=== PATIENT | female | born 2000 | race Caucasian/White ===

== ENCOUNTER 2022-08-15 15:59 | Emergency (ER) | payer SELFPAY ==
[2022-08-15 16:01] VITALS: BP 128/81; PULSE 97; RESP 14; TEMP 36.1; O2SAT 98; BMI 38.5
--- NOTE | 2022-08-15 17:58 | ED.RN ---
CALLED FOR PT AT 1758, APPEARED PT HAD LEFT.
== END 2022-08-15 17:58 | disposition left against medical advice (07) ==
LOC: ED 18:54
DX: N64.4 Mastodynia (principal); Z53.21 Procedure and treatment not carried out due to patient leaving prior to being seen by health care provider

== ENCOUNTER → 2022-08-30 | Outpatient (CLI) | payer MEDICAID, SELFPAY ==
[2022-09-01 21:07] LABS: Chlamydia By Nucleic Acid AMP Negative (Negative)
[2022-09-01 22:21] LABS: Gonococcus By Nucleic Acid AMP Negative (Negative)
[2022-09-06 20:38] LABS: HPV Reflexed? NOT INDICATED
== END | disposition home or self-care (01) ==
PROVIDERS: Visit Provider Nurse Practitioner Women's Health
DX: N89.8 Other specified noninflammatory disorders of vagina (principal); Z11.3 Encounter for screening for infections with a predominantly sexual mode of transmission; Z12.4 Encounter for screening for malignant neoplasm of cervix
CPT/HCPCS: 87070; 87205; 87491; 87591; 88175; G0145

== ENCOUNTER 2023-07-04 03:01 | Emergency (ER) | payer MEDICAID, SELFPAY ==
[2023-07-04 03:01] VITALS: BP 147/95; PULSE 84; RESP 17; TEMP 36.1; O2SAT 98; BMI 37.4
[2023-07-04 03:16] VITALS: O2SAT 100
--- NOTE | 2023-07-04 03:16 | EKG12_ITS ---
Test Reason : CP Blood Pressure : / mmHG Vent. Rate : 095 BPM Atrial Rate : 095 BPM P-R Int : 134 ms QRS Dur : 074 ms QT Int : 326 ms P-R-T Axes : 023 029 017 degrees QTc Int : 409 ms Normal sinus rhythm Normal ECG Confirmed by DYLAN BAY, MANUEL ([id number]), film and video editor DUYEN CRAWLEY ([id number]) on 07/05/2023 10:32:18 AM Referred By: Confirmed By:MANUEL RICHARDSON MD
--- NOTE | 2023-07-04 03:16 | ED.RN ---
Dr Bah states patient does not require a sitter.
--- NOTE | 2023-07-04 03:21 | EDS_ITS ---
HPI History of Present Illness Chief Complaint: Chest Pain Informant: patient Narrative Narrative: Patient presents with chest heaviness and feeling like she needs to take a deep breath. She has had issues with this off and on for the last almost year. She states it normally occurs with panic attacks. She has been feeling it more today. There is evidently a unpleasant discussion with somebody that initiated it. Patient has no family history of heart disease or PE. Patient has no recent travel surgery immobilization or personal history of PE. She has control listed on her med list. But she states she was prescribed this in August. She took it for less than 2 weeks and stopped it. She has not been on any control. She has not been sick or having fevers or chills. [facility] Medical History Anxiety Bipolar 1 disorder Depression Insomnia Home Medications norgestimate 0.25 mg-ethinyl estradiol 35 mcg tablet (Sprintec (28)) 1 tab PO QDAY #28 tabs 08/30/22 [Rx Last Taken Unknown] nitrofurantoin monohydrate/macrocrystals 100 mg capsule (Macrobid) 100 mg PO Q12H 7 days #14 caps 07/04/23 [Rx Last Taken Unknown] Allergy/AdvReac Type Severity Reaction Status Date / Time No Known Allergies Allergy Verified 07/04/23 03:05 Family History Grandmother Cancer Uterine Aunt Cancer cervical Aunt Breast cancer Social History housing: house number of children: 0 current occupational status: employed current occupation: [employer] Smoking Status: Current every day smoker tobacco type: cigarettes alcohol intake: current alcohol intake frequency: holidays/special occasions only substance use type: does not use seatbelt use: always do you feel safe at home: Yes additional social history: Boyfriend-Nilesh GENA GENA AVERY Narrative And A complete review of systems was performed and is negative except as documented in the history of present illness. Some specific details below. Constitutional: No recent fevers or chills. No malaise. EYE: No discharge, visual complaints, or pain. ENT: No difficulty swallowing. No swelling. No pain. No reflux symptoms. CV: See history of present illness. Respiratory: See history of present illness. GI: No abdominal pain. No nausea vomiting diarrhea. No blood in stool. : No frequency dysuria or hematuria. Musculoskeletal: No recent trauma. No pains. No swelling. Skin: No rash. Nondiaphoretic. Neuro: No weakness or numbness. Endocrine: No polyuria or polydipsia. EXAM Physical Exam Narrative Exam Narrative: CONSTITUTIONAL: Patient is nontoxic in appearance. The patient looks comfortable. Work of breathing looks normal. HEENT: No notable trauma. Mucous membranes moist. No sinus tenderness. No indication of pain with swallowing. EYES: No conjunctival injection. No proptosis. NECK:No JVD. No stridor. CARDIOVASCULAR: Regular rate. Regular rhythm. No notable murmur. No JVD. Peripheral pulses are normal x 4. RESPIRATORY: No respiratory distress. Breathing is unlabored. No wheezes. No rhonchi. No rales. No pain with a deep breath. Mild chest wall tenderness. But no subcutaneous air or crepitance. GASTROINTESTINAL: Not distended. Bowel sounds are normal. No tenderness. No guarding. No rebound. No palpable mass. No bruit is heard. GENITOURINARY: No tenderness over the bladder. No CVA tenderness. MUSCULOSKELETAL: Atraumatic. No peripheral edema. No cord. No tenderness along the deep venous system. No asymmetry. No distended veins. NEUROLOGICAL: Patient is alert and appropriate. No focal deficit noted. SKIN: No noted rashes. No diaphoresis. PSYCHIATRIC: Patient is calm. Mood is appropriate. Const Vital Signs: 07/04/23 03:01 07/04/23 03:16 07/04/23 04:01 Temperature 96.9 F L Temperature Source Temporal Pulse Rate 84 66 Respiratory Rate 17 15 Blood Pressure 147/95 H 94/76 Blood Pressure Mean 112 82 Pulse Ox 98 100 100 Oxygen Delivery Method Room Air Room Air Room Air 07/04/23 04:55 Temperature Temperature Source Pulse Rate 71 Respiratory Rate 19 H Blood Pressure 115/80 Blood Pressure Mean 91 Pulse Ox 98 Oxygen Delivery Method Room Air MDM MDM MDM Narrative Medical decision making narrative: Patient's CBC shows minimal nonspecific elevation in the white count with normal hemoglobin and platelets. Patient's electrolytes show no marked abnormalities. Patient's troponin is negative despite symptoms all day today and multiple episodes recently. I do not think this needs a repeat troponin. My independent interpretation of her single view chest x-ray shows no acute process. I see no cardiomegaly infiltrate or pneumothorax. Of note, we are having problems with our radiology system tonight. All night I have not been able to see films. Finally on this image I can see films. We are having delays getting them read. Even when the films are read there is significant delays on getting the results faxed to us. So I am not going to be able to get the final reading on this film. But I am not seeing anything on it that would make me hold the patient here. Patient is PERC negative. She has had longstanding symptoms. Workup is overall negative. I think she is safe for discharge and follow-up. Patient also mention at check-in that she had thoughts of hurting herself. She has had this in the past. She is not having it now. She does feel that her anxiety and depression is getting worse. She actually has an appointment 2:00 today for an assessment and evaluation. I do not think we need to accelerate this and have her seen by crisis. Patient also now asked if she had a UTI. I explained that she had had no complaints related to that. She now states that she is concerned she does have a UTI so we will add that on at this time. While waiting for urinalysis, we were able to get reading of the chest x-ray which showed no radiographic evidence of acute cardiopulmonary disease. Her urine is not a clean-catch. But there are a large number of white cells red cells. Loudly and there is leukocytes esterase. Nitrites are negative. She does have 2+ bacteria. Patient does have some discomfort with urination. We will treat this pending culture. Lab Data Attestation: I reviewed the patient's lab results. Labs: Laboratory Results - last 24 hr 07/04/23 07/04/23 03:10 05:02 WBC 11.1 H RBC 4.41 Hgb 13.0 Hct 40.2 MCV 91.2 MCH 29.5 MCHC 32.3 RDW Std Deviation 42.4 RDW Coeff of Jakob 12.7 Plt Count 324 MPV 10.4 Immature Gran % (Auto) 0.300 Neut % (Auto) 54.5 Lymph % (Auto) 34.0 [place] % (Auto) 8.7 Eos % (Auto) 2.1 Baso % (Auto) 0.4 Absolute Neuts (auto) 6.1 Absolute Lymphs (auto) 3.77 Nucleated RBC % 0 Sodium 140 Potassium 3.6 Chloride 108 H Carbon Dioxide 27.0 Anion Gap 5 BUN 14 Creatinine 0.94 Estim Creat Clear Calc 69.64 Est GFR (MDRD) Af Amer 94 Est GFR (MDRD) Non-Af 77 BUN/Creatinine Ratio 14.9 Glucose 95 Calcium 9.5 Troponin I High Sens 4 Urine Color Yellow Urine Clarity Sl. Cloudy Urine pH 6.5 Ur Specific [place] 1.025 Urine Protein 30 H Urine Glucose (UA) Normal Urine Ketones 5 H Urine Occult Blood 250 H Urine Nitrite Negative Urine Bilirubin Negative Urine Urobilinogen 4 H Ur Leukocyte Esterase 500 H Urine RBC 50-100 SEEN Urine WBC 50-100 SEEN Ur Squamous Epith Cells 10-25 SEEN Urine Bacteria 2+ Urine Mucus 0 SEEN EKG Initial EKG: Comments: My independent interpretation of the patient's EKG shows normal sinus rhythm with a rate of 95. No ectopy. No acute ST elevation or depression. SC interval, QRS duration and QTc are normal. This EKG was done while she was having symptoms. Discharge Plan Triage Chief Complaint: Chest Pain ED Provider: Boyd Bah Dx/Rx/DC Orders Clinical Impression: History of anxiety, History of depression, Chest pain, UTI (urinary tract infection) Instructions: Urinary Tract Infections in Women, ED Anxiety Reaction, ED Chest Pain, Uncertain Cause Prescriptions: New nitrofurantoin monohyd/m-cryst [Macrobid] 100 mg capsule 100 mg PO Q12H 7 Days Qty: 14 0RF Rx Instructions: must administer with a meal/food No Action norgestimate-ethinyl estradiol [Sprintec (28)] 0.25-35 mg-mcg tablet 1 tab PO QDAY Qty: 28 3RF Primary Care Provider: Care Physician,No Primary Referrals: Gifty Cotton DO [Med Staff - Serials Librarian] - 3-5 Days if not improving Care Physician,No Primary [Primary Care Provider] - Activity Restrictions/Additional Instructions: Follow-up with your counseling appointment today at 2 PM. Disposition Disposition: Home, Self Care
[2023-07-04 03:29] LABS: Absolute Lymphocyte Count 3.77 X10^3/uL (0.83-4.51); Absolute Neutrophil Count 6.1 X10^3/uL (2.0-7.7); Basophil# 0.04 X10^3/uL; Basophil% 0.4 % (0-1); Eosinophil# 0.23 X10^3/uL; Eosinophils% 2.1 % (0-5); Hematocrit 40.2 % (37-47); Lymphocyte # 3.77 X10^3/ul (0.83-4.51); Mean Corp Hgb Conc 32.3 g/dL (32-36); Mean Corpuscular Hgb 29.5 pg (27.0-32.0); Mean Corpuscular Volume 91.2 fL (81-99); Mean Platelet Vol. 10.4 fl (6.2-12.0); Monocyte# 0.97 X10^3/uL; Monocyte% 8.7 % (0-10); NRBC Flagged by Analyzer 0 % (0-5); Neutrophil # 6.06 X10^3/uL (2.7-7.7); Neutrophil % 54.5 % (47-70); Platelet Count 324 K/mm3 (150-450); RBC Distribution Width CV 12.7 % (11.6-14.6); RBC Distribution Width SD 42.4 fl (35.1-43.9); Red Blood Count 4.41 M/mm3 (4.2-5.4); White Blood Count 11.1 K/mm3 (4.4-11.0)
--- NOTE | 2023-07-04 03:30 | RAD_ITS ---
EXAM: XR CHEST, 1 VIEW CLINICAL INDICATION: chest pain TECHNIQUE: Frontal view of the chest. COMPARISON: No relevant prior studies available. FINDINGS: LUNGS AND PLEURAL SPACES: Unremarkable. No consolidation or edema. No pneumothorax. No effusion. HEART: Unremarkable. Cardiac silhouette not enlarged. MEDIASTINUM: Central airways and mediastinal contour are unremarkable. BONES/JOINTS: Unremarkable. No acute fracture. SOFT TISSUES: Unremarkable. RAD/Chest 1 View (Portable) IMPRESSION: No radiographic evidence of acute cardiopulmonary disease. Electronically Signed: Mika Anderson MD at 4:29 EST ,
[2023-07-04 03:58] LABS: Anion Gap 5 (5-15); BUN 14 mg/dL (7-18); BUN/Creat Ratio 14.9 RATIO (10-20); Calcium,Total 9.5 mg/dL (8.5-10.1); Chloride 108 mmol/L (98-107); Creatinine, Serum 0.94 mg/dL (0.55-1.02); EST Glomerular Filtration Rate 77 mL/min (>60); Est Glom Filt Rate - Afr Amer 94 mL/min (>60); Estimated Creatinine Clearance 69.64 ml/min; Glucose 95 mg/dL (74-106); Potassium 3.6 mmol/L (3.5-5.1); Sodium Level 140 mmol/L (136-145); Troponin-I HS 4 pg/mL (3.0-54.0)
[2023-07-04 04:01] VITALS: BP 94/76; PULSE 66; RESP 15; O2SAT 100
[2023-07-04 04:55] VITALS: BP 115/80; PULSE 71; RESP 19; O2SAT 98
[2023-07-04 05:19] LABS: Mucous, Urine 0 SEEN /hpf (<or=2+)
[2023-07-04 05:23] LABS: Color, Urine Yellow (Yellow); Glucose, Dipstick Normal (Normal); Ketone-Dipstick 5 mg/dl (Negative); Leukocyte Esterase-Dipstick 500 /ul (Negative); Nitrite-Dipstick Negative (Negative); Occult Blood-Urine 250 /ul (Negative); Protein-Dipstick 30 mg/dl (Negative); Specific Gravity, Urine 1.025 (1.002-1.030); Urine Bilirubin Dipstick Negative (Negative); Urine Clarity Sl. Cloudy (Clear); Urine Urobilinogen 4 mg/dl (Normal); Urine pH 6.5 (5.0 - 8.0)
[2023-07-04 06:01] LABS: Bacteria 2+ /hpf (None Seen); Red Blood Cells-Urine 50-100 SEEN /hpf (0-5); Squamous Epithelial Cells - UA 10-25 SEEN /hpf (5-10); White Blood Cells 50-100 SEEN /hpf (0-5)
--- NOTE | 2023-07-04 06:33 | ED.RN ---
MACROBID 100 MG PO GIVEN AT THIS TIME PER NOW ORDER FROM DR HAHN
[2023-07-04 06:34] VITALS: BP 115/80; PULSE 71; RESP 15; O2SAT 98
== END 2023-07-04 06:38 | disposition home or self-care (01) ==
PROVIDERS: Emergency Provider Emergency Medicine; Visit Provider Emergency Medicine
DX: R07.9 Chest pain, unspecified (principal); F41.9 Anxiety disorder, unspecified; F17.210 Nicotine dependence, cigarettes, uncomplicated; F32.A Depression, unspecified; N39.0 Urinary tract infection, site not specified
CPT/HCPCS: 71045; 80048; 81001; 84484; 85025; 87086; 93005; 99283; A4216

== ENCOUNTER 2023-07-08 18:27 | Emergency (ER) | payer MEDICAID, SELFPAY ==
[2023-07-08 18:28] VITALS: BP 106/82; PULSE 75; RESP 16; TEMP 36.2; O2SAT 100; BMI 36.6
[2023-07-08 18:31] VITALS: PULSE 98; RESP 16; O2SAT 98
--- NOTE | 2023-07-08 19:27 | EDS_ITS ---
HPI History of Present Illness Chief Complaint: Chest Pain Informant: patient Onset/Context/Timing Onset: Today and Hours (Approximately 30 minutes prior to arrival) Activity at onset: sudden and rest Timing: Intermittent and Lasts (Approximately 30 minutes) Quality: Positive for Pressure and Sharp Location: Left Chest and - (Left arm) Worsened By: Nothing Relieved By: Nothing Associated Symptoms: Positive for Nausea, Dyspnea, Lightheadedness and Palpitations; Negative for Vomiting, Diaphoresis, Cough, Fever or Acid Reflux Narrative Narrative: Patient presents with chest pain that began approximately 30 minutes prior to arrival. Patient states it is over the left side of her chest. Patient states it radiated into her left arm and went down into her left hand. Patient is to some tingling in the fingers of her left hand. Patient also admits to some swelling of her left palm. Patient states this lasted approximately 30 minutes and then resolved. Patient describes it as sharp and pressure. Patient states nothing makes it better nothing makes it worse. Patient admits to some nausea with the pain. Patient also admits to some lightheadedness. Patient states she was having some palpitations earlier in the day. Patient also admits to some shortness of breath. Patient denies any cough or fever. CVD Risk Factors: Positive for Smoking; Negative for Hypertension, Diabetes, Hypercholesterolemia or Family History 1' </=55 PE Risk Factors: Negative for Recent Travel/Surgery, Recent Immobilization, Prior DVT or PE, Cancer or OCP + Smoking + >/=35 PFSH PFSH Medical History Anxiety Bipolar 1 disorder Depression Insomnia Home Medications norgestimate 0.25 mg-ethinyl estradiol 35 mcg tablet (Sprintec (28)) 1 tab PO QDAY #28 tabs 08/30/22 [Rx Last Taken Unknown] nitrofurantoin monohydrate/macrocrystals 100 mg capsule (Macrobid) 100 mg PO Q12H 7 days #14 caps 07/04/23 [Rx Last Taken Unknown] Allergy/AdvReac Type Severity Reaction Status Date / Time No Known Allergies Allergy Verified 07/08/23 18:27 Family History Grandmother Cancer Uterine Aunt Cancer cervical Aunt Breast cancer Surgical History no surgical history no surgical history Social History housing: house number of children: 0 current occupational status: employed current occupation: [employer] Smoking Status: Current every day smoker tobacco type: cigarettes alcohol intake: current alcohol intake frequency: holidays/special occasions only substance use type: does not use seatbelt use: always do you feel safe at home: Yes additional social history: Apolinar AVERY ROS ED Constitutional Constitutional ED: Denies chills or fever(s) Eyes Eyes: Denies blurry vision or change in vision ENT ENT ED: Denies rhinorrhea or sore throat Cardiovascular Cardiovascular: Reports chest pain; Denies palpitations Respiratory/Chest Respiratory/Chest: Reports dyspnea; Denies cough Gastrointestinal Gastrointestinal: Reports nausea; Denies vomiting Genitourinary Genitourinary ED: Denies dysuria or hematuria Musculoskeletal Musculoskeletal: Reports back pain and neck pain Integumentary Denies abscess or rash Neurologic Neurologic: Denies headache(s) or weakness Allergic/Immunologic Allergic/Immunologic ED: Denies mouth swelling or urticaria EXAM Physical Exam Const Vital Signs: 07/08/23 18:28 07/08/23 18:27 07/08/23 18:31 Temperature 97.1 F L Temperature Source Temporal Pulse Rate 75 98 Respiratory Rate 16 16 Respiratory Effort Normal Blood Pressure 106/82 H Blood Pressure Mean 90 Pulse Ox 100 98 Oxygen Delivery Method Room Air Room Air 07/08/23 20:00 Temperature Temperature Source Pulse Rate Respiratory Rate Respiratory Effort Blood Pressure Blood Pressure Mean Pulse Ox Oxygen Delivery Method Room Air Positive well nourished, well developed and obese General Appearance ED: well developed and NAD Nutritional Appearance: obese HEENT Reports moist mucous membranes Neck supple and no JVD Chest Wall palpation of chest normal Resp normal respiratory effort and clear to auscultation bilaterally Cardio regular rate and regular rhythm GI soft to palpation, non-tender and non-distended Extremity normal to inspection General Extremety ED: Negative for edema or tenderness General Extremity: Negative for edema Neuro oriented x3, CN's II-XII intact bilaterally and no sensory deficits noted Sensorium / Orientation: awake and alert Motor Exam: strength 5/5 throughout Psych mental status grossly normal Heart Score History: Slightly/Non-Suspicious ECG: Normal Risk Factors: 1 or 2 Risk Factors Troponin: </= Normal Limit Score: 1 MDM MDM MDM Narrative Medical decision making narrative: Differential diagnosis includes cardiac dysrhythmia, cardiac ischemia, pneumonia, pneumothorax, musculoskeletal pain, and anxiety. Patient has a Wells score of 0. I do not feel is from a pulmonary embolism. EKG will be obtained to assess for cardiac dysrhythmia and cardiac ischemia. CBC will be obtained to assess for leukocytosis and anemia. Basic metabolic profile will be obtained to assess for electrolyte abnormality and renal function. High-sensitivity troponin will be obtained to assess for cardiac ischemia. Chest x-ray will be obtained to assess for pneumonia and pneumothorax. Lab Data Attestation: I reviewed the patient's lab results. Lab results narrative: CBC was reviewed and was within normal limits. Basic metabolic profile was reviewed and was essentially within normal limits. High-sensitivity troponin was reviewed and was normal at 5. 2-hour repeat high-sensitivity troponin was reviewed and was normal at 4. Labs: Laboratory Results - last 24 hr 07/08/23 07/08/23 19:57 21:50 WBC 7.5 RBC 4.09 L Hgb 12.2 Hct 38.1 MCV 93.2 MCH 29.8 MCHC 32.0 RDW Std Deviation 43.5 RDW Coeff of Jakob 12.7 Plt Count 270 MPV 10.5 Immature Gran % (Auto) 0.400 Neut % (Auto) 55.1 Lymph % (Auto) 32.9 [place] % (Auto) 8.4 Eos % (Auto) 2.9 Baso % (Auto) 0.3 Absolute Neuts (auto) 4.2 Absolute Lymphs (auto) 2.48 Nucleated RBC % 0 Sodium 140 Potassium 3.9 Chloride 108 H Carbon Dioxide 30.0 Anion Gap 2 L BUN 12 Creatinine 0.75 Estim Creat Clear Calc 87.28 Est GFR (MDRD) Af Amer 122 Est GFR (MDRD) Non-Af 101 BUN/Creatinine Ratio 16.1 Glucose 104 Calcium 9.7 Troponin I High Sens 5 4 Radiography Chest X-Ray - ED: 2 View, Read by ED Physician, Read by Radiologist and No Acute Disease Diagnostic Testing: Clinical Impression(s) from Imaging Studies Chest X-Ray 07/08/23 19:33 IMPRESSION: No radiographic evidence of acute cardiopulmonary disease. Electronically Signed: Ollie Foster MD at 20:18 EST , PA and lateral chest x-ray was obtained. There are 2 views. On my independent interpretation, lung horn are clear. There is normal cardiac silhouette. Bony thorax is normal. There is no acute process noted. Radiologist also interpreted the x-ray and agrees. EKG Initial EKG: Attestation: I personally reviewed and interpreted this EKG as follows: Interpretation: Sinus Rhythm (72) and No Acute Injury Pattern Comments: EKG was obtained. On my independent interpretation, it showed a normal sinus rhythm with a rate of 72. AR interval, QRS interval, and QTc intervals were all normal. [place] was normal. There are no acute ST or T wave ch anges. Prior EKG tracings: available for review Prior: Unchanged (07/04/2023) Treatment and Re-Evaluation :: Patient was given aspirin. Patient is feeling better on reevaluation. Patient was advised of her findings. Patient has a HEART score of 1. Patient was advised that this is low risk for acute cardiac event. Patient was instructed to follow-up with her primary care physician in 5 to 7 days. Patient understood and was agreeable with the plan. All questions were answered. Discharge Plan Triage Chief Complaint: Chest Pain ED Provider: Vadim Goff Dx/Rx/DC Orders Clinical Impression: Chest pain, Anxiety, Bipolar 1 disorder Instructions: ED Chest Pain, Uncertain Cause Prescriptions: No Action norgestimate-ethinyl estradiol [Sprintec (28)] 0.25-35 mg-mcg tablet 1 tab PO QDAY Qty: 28 3RF nitrofurantoin monohyd/m-cryst [Macrobid] 100 mg capsule 100 mg PO Q12H 7 Days Qty: 14 0RF Rx Instructions: must administer with a meal/food Primary Care Provider: Care Physician,No Primary Referrals: León Sunshine MD [Non-Staff] - 5-7 Days Care Physician,No Primary [Primary Care Provider] - Disposition Disposition: Home, Self Care
--- NOTE | 2023-07-08 19:33 | EKG12_ITS ---
Test Reason : CP Blood Pressure : / mmHG Vent. Rate : 072 BPM Atrial Rate : 087 BPM P-R Int : 126 ms QRS Dur : 082 ms QT Int : 348 ms P-R-T Axes : 022 032 023 degrees QTc Int : 381 ms Normal sinus rhythm with sinus arrhythmia Normal ECG Confirmed by DYLAN BAY, MANUEL ([id number]), production editor KATIE GARCIA ([id number]) on 07/17/2023 9:19:16 AM Referred By: Confirmed By:MANUEL RICHARDSON MD
--- NOTE | 2023-07-08 19:33 | RAD_ITS ---
EXAM: XR CHEST, 2 VIEWS CLINICAL INDICATION: chest pain TECHNIQUE: Frontal and lateral views of the chest. COMPARISON: 07.04.23 FINDINGS: LUNGS AND PLEURAL SPACES: Unremarkable. No consolidation or edema. No pneumothorax. No effusion. HEART: Unremarkable. Cardiac silhouette not enlarged. MEDIASTINUM: Central airways and mediastinal contour are unremarkable. BONES/JOINTS: Unremarkable. No acute fracture. SOFT TISSUES: Unremarkable. RAD/Chest PA and Lateral IMPRESSION: No radiographic evidence of acute cardiopulmonary disease. Electronically Signed: Ollie Foster MD at 20:18 EST ,
[2023-07-08] MEDS: Aspirin 81 MG TAB.CHEW 324 MG PO (19:55)
[2023-07-08 20:02] LABS: Absolute Lymphocyte Count 2.48 X10^3/uL (0.83-4.51); Absolute Neutrophil Count 4.2 X10^3/uL (2.0-7.7); Basophil# 0.02 X10^3/uL; Basophil% 0.3 % (0-1); Eosinophil# 0.22 X10^3/uL; Eosinophils% 2.9 % (0-5); Hematocrit 38.1 % (37-47); Hemoglobin 12.2 g/dL (12.0-15.0); Lymphocyte # 2.48 X10^3/ul (0.83-4.51); Lymphocyte % 32.9 % (19-41); Mean Corpuscular Hgb 29.8 pg (27.0-32.0); Mean Corpuscular Volume 93.2 fL (81-99); Mean Platelet Vol. 10.5 fl (6.2-12.0); Monocyte# 0.63 X10^3/uL; Monocyte% 8.4 % (0-10); NRBC Flagged by Analyzer 0 % (0-5); Neutrophil # 4.15 X10^3/uL (2.7-7.7); Neutrophil % 55.1 % (47-70); Platelet Count 270 K/mm3 (150-450); RBC Distribution Width CV 12.7 % (11.6-14.6); RBC Distribution Width SD 43.5 fl (35.1-43.9); Red Blood Count 4.09 M/mm3 (4.2-5.4); White Blood Count 7.5 K/mm3 (4.4-11.0)
[2023-07-08 20:19] LABS: Anion Gap 2 (5-15); BUN 12 mg/dL (7-18); BUN/Creat Ratio 16.1 RATIO (10-20); Calcium,Total 9.7 mg/dL (8.5-10.1); Chloride 108 mmol/L (98-107); Creatinine, Serum 0.75 mg/dL (0.55-1.02); EST Glomerular Filtration Rate 101 mL/min (>60); Est Glom Filt Rate - Afr Amer 122 mL/min (>60); Estimated Creatinine Clearance 87.28 ml/min; Glucose 104 mg/dL (74-106); Potassium 3.9 mmol/L (3.5-5.1); Sodium Level 140 mmol/L (136-145); Troponin-I HS (w/2H Reflex) 5 pg/mL (3.0-54.0)
[2023-07-08 21:59] LABS: Reflex Troponin-HS? (from REC) Y
[2023-07-08 22:24] LABS: Troponin-I HS 4 pg/mL (3.0-54.0)
== END 2023-07-08 22:59 | disposition home or self-care (01) ==
PROVIDERS: Emergency Provider Emergency Medicine; Visit Provider Emergency Medicine
DX: R07.9 Chest pain, unspecified (principal); F31.9 Bipolar disorder, unspecified; R11.0 Nausea; F41.9 Anxiety disorder, unspecified; F17.210 Nicotine dependence, cigarettes, uncomplicated; R42 Dizziness and giddiness; R00.2 Palpitations; R06.02 Shortness of breath; E66.9 Obesity, unspecified
CPT/HCPCS: 71046; 80048; 84484; 85025; 93005; 99283; A4216

== ENCOUNTER → 2023-10-31 | Outpatient (CLI) | payer MEDICAID, SELFPAY ==
[2023-10-31 14:00] LABS: Hemoglobin A1c 5.2 % (3.8-5.6)
[2023-10-31 14:09] LABS: Thyroid Stim Hormone (TSH) 4.49 uIU/mL (0.358-3.74)
[2023-10-31 15:06] LABS: HIV - WCH Non-Reactive (Nonreactive); Hepatitis C Antibody Non-Reactive (Nonreactive); Syphilis Antibodies Non-reactive
[2023-11-02 07:09] LABS: HSV 1 IgG < 0.91 index (0.00-0.90); HSV 2 IgG < 0.91 index (0.00-0.90); Thyroid Peroxidase AB < 9 IU/mL (0-34)
[2023-11-03 08:13] LABS: Chlamydia By Nucleic Acid AMP Negative (Negative); Gonococcus By Nucleic Acid AMP Negative (Negative)
== END | disposition home or self-care (01) ==
LOC: LAB 12:27
PROVIDERS: PCP Nurse Practitioner Family; Referring Provider Nurse Practitioner Women's Health; Visit Provider Nurse Practitioner Women's Health
DX: Z11.3 Encounter for screening for infections with a predominantly sexual mode of transmission (principal); N91.5 Oligomenorrhea, unspecified; Z20.2 Contact with and (suspected) exposure to infections with a predominantly sexual mode of transmission; Z13.29 Encounter for screening for other suspected endocrine disorder
CPT/HCPCS: 36415; 83036; 84439; 84443; 86376; 86695; 86696; 86703; 86780; 86803; 87491; 87591

== ENCOUNTER 2024-02-14 11:41 | Emergency (ER) | payer MEDICAID, SELFPAY ==
[2024-02-14 11:42] VITALS: BP 132/99; PULSE 80; RESP 16; TEMP 36.2; O2SAT 96; BMI 38.0
[2024-02-14 12:16] LABS: Absolute Lymphocyte Count 2.77 X10^3/uL (0.83-4.51); Absolute Neutrophil Count 4.1 X10^3/uL (2.0-7.7); Basophil# 0.04 X10^3/uL; Basophil% 0.5 % (0-1); Eosinophils% 3.8 % (0-5); Hematocrit 41.2 % (37-47); Hemoglobin 13.7 g/dL (12.0-15.0); Lymphocyte # 2.77 X10^3/ul (0.83-4.51); Lymphocyte % 34.9 % (19-41); Mean Corp Hgb Conc 33.3 g/dL (32-36); Mean Corpuscular Volume 90.2 fL (81-99); Mean Platelet Vol. 10.2 fl (6.2-12.0); Monocyte# 0.67 X10^3/uL; Monocyte% 8.4 % (0-10); NRBC Flagged by Analyzer 0 % (0-5); Neutrophil # 4.13 X10^3/uL (2.7-7.7); Platelet Count 289 K/mm3 (150-450); RBC Distribution Width CV 12.6 % (11.6-14.6); RBC Distribution Width SD 41.4 fl (35.1-43.9); Red Blood Count 4.57 M/mm3 (4.2-5.4); White Blood Count 7.9 K/mm3 (4.4-11.0)
[2024-02-14 12:37] LABS: Alcohol, Blood (Medical)-Serum < 3.0 mg/dL
[2024-02-14 12:43] LABS: Internal QC Validated? YES +Cl - CLEAR BKGD; Pregnancy, Serum, hCG Quali. NEGATIVE Negative
[2024-02-14 13:02] LABS: Amphetamine Urine VISTA NEGATIVE (<1000 ng/mL); Barbiturate Urine VISTA NEGATIVE (< 200 ng/mL); Benzodiazepine Urine VISTA NEGATIVE (< 200 ng/mL); Cocaine Urine VISTA NEGATIVE (< 300 ng/mL); Ecstacy Urine VISTA NEGATIVE (< 500 ng/mL); Methadone Urine VISTA NEGATIVE (< 300 ng/mL); PCP Urine VISTA NEGATIVE (< 25 ng/mL); THC Urine VISTA NEGATIVE (< 50 ng/mL); Vista UDS pH Range 6
[2024-02-14 13:13] LABS: Anion Gap 5 (5-15); BUN 8 mg/dL (7-18); BUN/Creat Ratio 9.8 RATIO (10-20); Calcium,Total 9.5 mg/dL (8.5-10.1); Chloride 107 mmol/L (98-107); Creatinine, Serum 0.82 mg/dL (0.55-1.02); EST Glomerular Filtration Rate 91 mL/min (>60); Est Glom Filt Rate - Afr Amer 110 mL/min (>60); Estimated Creatinine Clearance 107.86 ml/min; Glucose 95 mg/dL (74-106); Potassium 3.9 mmol/L (3.5-5.1); Sodium Level 137 mmol/L (136-145)
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
[2024-02-14 17:30] VITALS: BP 130/81; PULSE 89; RESP 18; O2SAT 100
[2024-02-14 22:00] VITALS: BP 128/78; PULSE 64; RESP 18; O2SAT 98
[2024-02-15 02:51] VITALS: BP 122/78; PULSE 78; RESP 16; O2SAT 98
[2024-02-15 07:10] VITALS: BP 122/78; PULSE 78; RESP 16; TEMP 36.2; O2SAT 98
--- NOTE | 2024-02-15 07:11 | NURSING ---
This RN attempted to call report to [facility] [phone] x [phone]. no answer.
== END 2024-02-15 06:50 ==
PROVIDERS: Emergency Provider Emergency Medicine; PCP Nurse Practitioner Family; Visit Provider Emergency Medicine
DX: F31.9 Bipolar disorder, unspecified (principal); R45.851 Suicidal ideations; F41.9 Anxiety disorder, unspecified; Z91.51 Personal history of suicidal behavior; F17.210 Nicotine dependence, cigarettes, uncomplicated
CPT/HCPCS: 80048; 80307; 82077; 84703; 85025; 99284

== ENCOUNTER → 2024-06-04 | Outpatient (CLI) | payer MEDICAID, SELFPAY ==
[2024-06-07 08:12] LABS: Chlamydia By Nucleic Acid AMP Negative (Negative); Gonococcus By Nucleic Acid AMP Negative (Negative)
== END | disposition home or self-care (01) ==
LOC: LABSPEC 13:39
PROVIDERS: PCP Nurse Practitioner Family; Referring Provider Nurse Practitioner Women's Health; Visit Provider Nurse Practitioner Women's Health
DX: Z11.3 Encounter for screening for infections with a predominantly sexual mode of transmission (principal); N89.8 Other specified noninflammatory disorders of vagina; R30.0 Dysuria
CPT/HCPCS: 87070; 87086; 87088; 87205; 87491; 87591